=== PATIENT | female | born 1990 | race Caucasian/White ===

== ENCOUNTER 2018-07-07 07:12 | Emergency (ER) | payer OTHER ==
[~2018-07-07] VITALS: Ht 172.7 cm; Wt 94.5 kg
--- NOTE | 2018-07-07 07:34 | NUR ---
PATIENT AMBULATED TO BED 6.
[2018-07-07 07:39] VITALS: BP 137/73
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
--- NOTE | 2018-07-07 07:48 | NUR ---
SUTURE REMOVAL KIT BEDSIDE
--- NOTE | 2018-07-07 07:50 | NUR ---
DR DILLARD AT BEDSIDE
[2018-07-07] MEDS ORDERED: BACITRACIN OINT 500 UNITS/GM PKT TP ONE ×2 (07:55→08:10)
--- NOTE | 2018-07-07 07:57 | NUR ---
8 STICHES REMOVED FROM LEFT EYE WITHOUT PROBLEMS. PT TOLERATED WELL.
--- NOTE | 2018-07-07 08:13 | NUR ---
PT BEING TAKEN TO CT
[2018-07-07 09:26] VITALS: BP 133/72
== END 2018-07-07 09:26 | disposition home or self-care (01) ==
LOC: MED 07:12
DX: S05.12XA Contusion of eyeball and orbital tissues, left eye, initial encounter (principal); S01.112D Laceration without foreign body of left eyelid and periocular area, subsequent encounter; X58.XXXA Exposure to other specified factors, initial encounter; Y93.89 Activity, other specified; Y92.89 Other specified places as the place of occurrence of the external cause; Y99.8 Other external cause status
CPT/HCPCS: 70486; 81025; 99284

== ENCOUNTER 2019-10-21 16:46 | Emergency (ER) | payer OTHER ==
[~2019-10-21] VITALS: Ht 172.7 cm; Wt 99.8 kg
[2019-10-21 16:48] VITALS: BP 155/75
--- NOTE | 2019-10-21 17:01 | NUR ---
WAIT AT LOBBY.
--- NOTE | 2019-10-21 17:32 | NUR ---
PT AMB TO BED 8.
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
[2019-10-21] MEDS ORDERED: IBUPROFEN 600 MG TAB PO ONE (17:50)
[2019-10-21] MEDS ORDERED: LIDOCAINE MPF 1% 10 MG/ML VIAL INJ ONE (17:50)
--- NOTE | 2019-10-21 18:24 | NUR ---
IRRIGATED LEFT 5TH DIGIT WITHOUT ANY ISSUES
--- NOTE | 2019-10-21 18:34 | NUR ---
motrin and tdap administered. pt signed consent for tdap
[2019-10-21] MEDS ORDERED: BACITRACIN OINT 500 UNITS/GM PKT TP ONE (19:49)
--- NOTE | 2019-10-21 19:55 | NUR ---
pt wound covered with non adherent dressing and wrapped with coflex after bacitracin applied.
[2019-10-21 20:00] VITALS: BP 148/70
--- NOTE | 2019-10-21 20:00 | NUR ---
Patient discharged with v/s stable. Written and verbal after care instructions given and explained. Patient alert, oriented and verbalized understanding of instructions. Ambulatory with steady gait. All questions addressed prior to discharge. ID band removed. Patient advised to follow up with PMD. Rx of IBUPROFEN, BACITRACIN given. Patient educated on indication of medication including possible reaction and side effects. Opportunity to ask questions provided and answered.
== END 2019-10-21 20:00 | disposition home or self-care (01) ==
LOC: MED 16:46
DX: S61.412A Laceration without foreign body of left hand, initial encounter (principal); R03.0 Elevated blood-pressure reading, without diagnosis of hypertension; W26.0XXA Contact with knife, initial encounter; Y93.89 Activity, other specified; Y92.89 Other specified places as the place of occurrence of the external cause; Y99.8 Other external cause status
CPT/HCPCS: 12001; 90471; 90715; 99283; J2001

== ENCOUNTER 2019-10-27 14:38 | Emergency (ER) | payer OTHER ==
[~2019-10-27] VITALS: Ht 172.7 cm; Wt 90.7 kg
[2019-10-27 14:40] VITALS: BP 134/70
--- NOTE | 2019-10-27 14:46 | NUR ---
PATIENT AMBULATED TO BED 4.
--- NOTE | 2019-10-27 14:50 | NUR ---
BIB SELF FOR SUTURE REMOVAL LEFT 5TH FINGER. WOUND CLEAN & DRY. DENIES PAIN AT THIS TIME.
[2019-10-27 15:12] VITALS: BP 134/70
--- NOTE | 2019-10-27 15:12 | NUR ---
Patient discharged with v/s stable. Written and verbal after care instructions given and explained. Patient verbalized understanding. Ambulatory with steady gait. All questions addressed prior to discharge. Advised to follow up with PMD.
--- NOTE | 2019-10-27 15:13 | NUR ---
Sergio corrigan in ED - 10/27/19 at 1513 by [facility] BIB SELF FOR SUTURE REMOVAL LEFT 5TH FINGER. WOUND CLEAN & DRY. DENIES PAIN AT THIS TIME.
== END 2019-10-27 15:12 | disposition home or self-care (01) ==
LOC: MED 14:38
DX: S61.217D Laceration without foreign body of left little finger without damage to nail, subsequent encounter (principal); X58.XXXD Exposure to other specified factors, subsequent encounter
CPT/HCPCS: 99281